=== PATIENT | female | born 1980 | race Caucasian/White ===

== ENCOUNTER → 2023-08-03 | Outpatient (REF) | payer BC, SELFPAY | LOC: DHSLP | PROVIDERS: ATTENDING PHYSICIAN Family Medicine | DX: G47.30 Sleep apnea, unspecified (principal); R06.83 Snoring | CPT/HCPCS: 95800 ==

== ENCOUNTER → 2024-02-24 06:23 | Day surgery (SDC) | payer BC, SELFPAY | LOC: GI 06:23 | PROVIDERS: ATTENDING PHYSICIAN Internal Medicine Gastroenterology | DX: Z12.11 Encounter for screening for malignant neoplasm of colon (principal); K57.30 Diverticulosis of large intestine without perforation or abscess without bleeding; K64.0 First degree hemorrhoids; Z83.719 Family history of colon polyps, unspecified | CPT/HCPCS: G0105 ==

== ENCOUNTER → 2024-11-02 09:21 | Outpatient (REF) | payer BC, SELFPAY | LOC: HWRAD 09:21 | PROVIDERS: ATTENDING PHYSICIAN Internal Medicine Rheumatology; FAMILY PHYSICIAN Family Medicine | DX: R10.11 Right upper quadrant pain (principal) | CPT/HCPCS: 76700 ==

== ENCOUNTER 2025-01-06 17:51 | Emergency (ER) | payer BC, SELFPAY ==
[2025-01-06 17:54] VITALS: BP 145/103
[2025-01-06 19:47] VITALS: BMI 31.4
--- NOTE | 2025-01-06 19:58 | ED.SKININJ ---
HPI-Injury
General
Chief Complaint: Skin Surface Trauma
Source: patient
Exam Limitations: none
Time Seen by Provider: 01/06/25 19:31
Nursing documentation reviewed up to this point in time: agreed with
History of Present Illness-Injury
Initial Injury comments:
44-year-old female presents with a laceration of the right index fingertip from a mandolin. Her tetanus immunization is not up-to-date.
Past History
Past History
ED Past Medical History: None
ED Past Surgical History: Appendectomy
Social History
Tobacco: Non-smoker
Personal:
Living: with family
Employment: Employed ([employer])
Review of Systems
Review of Systems
Allergies reviewed?: Yes
All Other Systems: ROS reviewed and negative except as documented in HPI and ROS
Skin Exam
Laceration
Tip of right index finger:
Length in cm: 1
Orientation: C shaped
Type of Laceration: simple
Any active bleeding?: low grade venous oozing
Phy Exam
Physical Exam
Physical Exam:
PHYSICAL EXAMINATION:
General: no apparent distress, not acutely ill
Neuro: alert and oriented.
Psychiatric: well kept. interactive and cooperative
Musculoskeletal: Moves with ease
Skin: Warm, pink. This is an avulsion laceration of the tip of the right index finger not quite complete and involves a 1 mm sliver of the distal fingernail. There is active bleeding
Course
Orders/Labs/Results
Orders:
Orders
01/06/25 19:59
Tetanus/Diphth/Acelpertussis [Adacel] 0.5 ml IM .ONCE ONE
Vital Signs
Initial and Last Documented VS:
Initial Vital Signs
Temp Pulse Resp BP Pulse Ox
98.4 F 98 18 145/103 99
01/06/25 17:54 01/06/25 17:54 01/06/25 17:54 01/06/25 17:54 01/06/25 17:54
Last Documented Vital Signs
Temp Pulse Resp BP Pulse Ox
98.4 F 98 18 145/103 99
01/06/25 17:54 01/06/25 17:54 01/06/25 17:54 01/06/25 17:54 01/06/25 19:59
MDM/Problems Addressed
MDM/Problems Addressed:
44-year-old female presents with a laceration of the right index fingertip from a mandolin. Her tetanus immunization is not up-to-date.
Tdap updated
This is a 5 mm avulsion and occluding 1 mm of the distal finger nail, there is active bleeding and the distal flap looks to have some circulation so I decided to glue the tip on informing the patient that the tip would either scab up and fall off or
revascularized.
A nonstick and tube gauze dressing has been applied.
*Pulse Oximetry
SaO2: 99
Oxygen Mode of Delivery: Room air
Patient hypoxic: not evaluated
*Critical Care Note
Total Time (30-74mins, 75-104mins- exclusive of procedures): Not Applicable
ED Attending Note
-
Portions of this chart may have been created with voice recognition software.� Occasional wrong word or��sound alike� substitutions may have occurred due to the inherent limitations of voice recognition software.
Discharge Plan
Departure
Patient Disposition: Home (Routine Discharge)
Date of Disposition: 01/06/25
Time of Disposition: 20:05
Patient with high blood pressure during this ER visit?: No
Condition: Good
Discharge Problem:
Laceration of right index finger
Instructions: Laceration Repair With Glue (DC)
Referrals:
Karla Gómez MD [Family Provider, Family Practice] - As needed
Activity Restrictions/Additional Instructions:
As we discussed, the skin at the tip of the finger may revascularize and heal or it may simply scab up and fall off.
Leave the current dressing on until Tuesday then remove the dressing, apply Band-Aids as I described and apply the aluminum fingertip splint for protection.
When you are showering, shower with the Band-Aids on then gently remove them after showering, allow the area to dry completely and replace Band-Aids and splint
It typically takes 2 to 3 weeks for this area to heal.
Ibuprofen as needed for pain, elevating the hand slightly higher than your heart will help minimize throbbing pains.
Interventions
Interventions:
*Risk Screen - Suicide Last Done: 01/06/25 17:54
*General Assessment Last Done: 01/06/25 17:54
*Neglect/Abuse Screening Last Done: 01/06/25 19:49
*ED- Fall Risk Assessment Last Done: 01/06/25 19:48
*ED COVID-19 Vaccine History Last Done: 01/06/25 19:48
*Nursing Disposition Last Done: 01/06/25 20:47
ED-Skin Assessment Last Done: 01/06/25 19:48
Discharge Date and Time
Discharge Date/Time: 01/06/25 20:47
Print Language: WOLOF
[2025-01-06] MEDS: ADACEL 0.5 ML IM (20:12)
== END 2025-01-06 20:47 | disposition home or self-care (01) ==
LOC: EMR 17:51
PROVIDERS: EMERGENCY PHYSICIAN Emergency Medicine; FAMILY PHYSICIAN Family Medicine
DX: S61.210A Laceration without foreign body of right index finger without damage to nail, initial encounter (principal); W45.8XXA Other foreign body or object entering through skin, initial encounter; Z23 Encounter for immunization; Z90.49 Acquired absence of other specified parts of digestive tract
CPT/HCPCS: 99282; 12001; 90471; 90715